=== PATIENT | female | born 1965 | race African-American/Black ===

== ENCOUNTER 2019-01-27 18:43 | Emergency (ER) | payer OTHER ==
[~2019-01-27] VITALS: Ht 162.6 cm; Wt 63.5 kg
[2019-01-27] MEDS ORDERED: COZAAR 25 MG TA25 M1 PO (18:56)
[2019-01-27] MEDS ORDERED: NORVASC10 MG PO (18:56)
[2019-01-27] MEDS ORDERED: LIPITOR 20 MG T20 M1 PO (18:56)
[2019-01-27] MEDS ORDERED: OMEPRAZOLE 20 M20 M1 PO (18:57)
[2019-01-27] MEDS ORDERED: NEURONTIN300 MG PO (18:57)
[2019-01-27] MEDS ORDERED: LEXAPRO20 MG PO (18:57)
[2019-01-27] MEDS ORDERED: PNV 29-1 TABLE1 EACH PO (18:57)
[2019-01-27] MEDS ORDERED: PREDNISONE50 MG PO (23:46)
[2019-01-28 01:26] VITALS: BP 150/68
== END 2019-01-28 01:29 | disposition home or self-care (01) ==
LOC: ER 18:43
DX: T78.3XXA Angioneurotic edema, initial encounter (principal); M32.9 Systemic lupus erythematosus, unspecified; F17.210 Nicotine dependence, cigarettes, uncomplicated; Z91.018 Allergy to other foods; Z88.6 Allergy status to analgesic agent

== ENCOUNTER 2019-08-13 12:33 | Emergency (ER) | payer OTHER ==
[~2019-08-13] VITALS: Ht 162.6 cm; Wt 68.0 kg
[~2019-08-13 12:33] MED LIST: COZAAR 25 MG TA25 M1 PO; LEXAPRO20 MG PO; LIPITOR 20 MG T20 M1 PO; NEURONTIN300 MG PO; NORVASC10 MG PO; OMEPRAZOLE 20 M20 M1 PO; PNV 29-1 TABLE1 EACH PO; PREDNISONE50 MG PO
[2019-08-13] MEDS ORDERED: TESSALON PERLE100 MG PO (13:45)
[2019-08-13 13:56] VITALS: BP 134/64
== END 2019-08-13 13:57 | disposition home or self-care (01) ==
LOC: ER 12:33
DX: R05 Cough (principal); R06.02 Shortness of breath; F17.210 Nicotine dependence, cigarettes, uncomplicated; Z20.828 Contact with and (suspected) exposure to other viral communicable diseases; Z91.018 Allergy to other foods; Z88.6 Allergy status to analgesic agent